=== PATIENT | female | born 1980 | race Caucasian/White ===

== ENCOUNTER 2022-08-19 11:21 | Emergency (ER) | payer OTHER ==
[2022-08-19 11:40] VITALS: RESP 16
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
--- NOTE | 2022-08-19 12:35 | XR ---
EXAMINATION TYPE: XR sacrum coccyx DATE OF EXAM: 08/19/2022 12:29 PM INDICATION: Patient age:Female; 42 years old; Reason for study: pain; PHH. COMPARISON: None TECHNIQUE: The sacrum/coccyx was examined in 3 views. FINDINGS: There is no evidence of fracture or dislocation. There is no soft tissue abnormality. Few pelvic phleboliths identified. Multilevel degenerative changes of the lower spine. IMPRESSION: No acute osseous pathology.
[2022-08-19 13:20] VITALS: BP 128/85; PULSE 60; TEMP 98.1
== END 2022-08-19 13:20 | disposition home or self-care (01) ==
LOC: EC 11:21
DX: M53.3 Sacrococcygeal disorders, not elsewhere classified (principal); J45.909 Unspecified asthma, uncomplicated; F17.200 Nicotine dependence, unspecified, uncomplicated; F12.90 Cannabis use, unspecified, uncomplicated; Z86.59 Personal history of other mental and behavioral disorders; Z88.2 Allergy status to sulfonamides
CPT/HCPCS: 72220; 99283